=== PATIENT | female | born 1990 | race Caucasian/White ===

== ENCOUNTER 2022-03-12 06:34 | Emergency (ER) | payer MEDICAID | END 2022-03-12 09:29 | disposition home or self-care (01) | LOC: JD.ED 06:34 | DX: S39.012A Strain of muscle, fascia and tendon of lower back, initial encounter (principal); S80.01XA Contusion of right knee, initial encounter; S80.02XA Contusion of left knee, initial encounter; Z88.2 Allergy status to sulfonamides; Z79.899 Other long term (current) drug therapy; W00.9XXA Unspecified fall due to ice and snow, initial encounter | CPT/HCPCS: 36415; 72100; 72100-26; 735642650; 73564-50; 85379; 99283 ==

== ENCOUNTER 2022-05-09 23:22 | Emergency (ER) | payer MEDICAID ==
[2022-05-10] MEDS ORDERED: Ondansetron 4 MG/2 ML SDV IVPUSH ONE (02:26)
[2022-05-10] MEDS ORDERED: Haloperidol Lactate 5 MG/ML SDV IM ONE (02:26)
[2022-05-10] MEDS ORDERED: Sodium Chloride 0.9% 1,000 ML IV ONE (02:26)
[2022-05-10] MEDS ORDERED: Acetaminophen/Butalbital/Caffeine 325-50-40 MG Tab PO STA (03:59)
== END 2022-05-10 04:15 | disposition home or self-care (01) ==
LOC: JD.ED 23:22
DX: G44.209 Tension-type headache, unspecified, not intractable (principal); K21.9 Gastro-esophageal reflux disease without esophagitis; Z88.2 Allergy status to sulfonamides; Z79.899 Other long term (current) drug therapy
CPT/HCPCS: 96361; 96372; 96374; 99283; A9270; J1630; J2405; J7030; 99282

== ENCOUNTER 2022-06-10 08:24 | Day surgery (SDC) | payer MEDICAID ==
[~2022-06-10 08:24] MED LIST: Lactated Ringers 1,000 ML IV SCH; Lidocaine 1%/Sod Bicarbonate in NS 8.4% 1 ML Syringe IDERM PRN; Sodium Chloride 0.9% 10 ML Syringe FLUSH PRN; Sodium Chloride 0.9% 10 ML Syringe FLUSH SCH
[2022-06-10] MEDS ORDERED: Lidocaine 1% 4 ML ONE (10:29)
[2022-06-10] MEDS ORDERED: fentaNYL 100 MCG/2 ML SDV ONE (10:30)
[2022-06-10] MEDS ORDERED: Propofol 200 MG/20 ML SDV ONE (10:30)
[2022-06-10] MEDS ORDERED: Midazolam 1 MG/ML 2 ML SDV ONE (10:31)
== END 2022-06-10 11:50 | disposition home or self-care (01) ==
LOC: JD.SDS 08:24
PROVIDERS: ATTEND Surgery
DX: K29.50 Unspecified chronic gastritis without bleeding (principal); K21.00 Gastro-esophageal reflux disease with esophagitis, without bleeding; J30.9 Allergic rhinitis, unspecified; Z88.2 Allergy status to sulfonamides; Z79.899 Other long term (current) drug therapy
CPT/HCPCS: 43239; 81025; J2250; J2704; J3010; J7120; J3490